=== PATIENT | male | born 1950 | race African-American/Black ===

== ENCOUNTER 2017-10-17 19:09 | Emergency (ER) | payer MEDICARE ==
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
== END 2017-10-17 23:50 | disposition home or self-care (01) ==
LOC: ERS 19:09
DX: S16.1XXA Strain of muscle, fascia and tendon at neck level, initial encounter (principal); E11.9 Type 2 diabetes mellitus without complications; E78.5 Hyperlipidemia, unspecified; I10 Essential (primary) hypertension; Z79.899 Other long term (current) drug therapy; Z79.82 Long term (current) use of aspirin; W20.8XXA Other cause of strike by thrown, projected or falling object, initial encounter
CPT/HCPCS: 70450

== ENCOUNTER 2023-01-06 16:48 | Inpatient (IN) | payer MEDICARE, OTHER ==
[2023-01-06 18:00] LABS: #Eosinphils 0.1 thou/uL (0.0-0.7); #Monocytes 0.6 thou/uL (0.11-0.59); #Neutrophils 3.2 thou/uL (1.40-6.50); %Basophils 0.4 % (0.0-1.0); %Eosinophils 2.6 % (0.0-10.0); %Lymphocytes 13.2 % (21.0-51.0); %Monocytes 12.1 % (0.0-10.0); %Neutrophils 71.5 % (42.0-75.0); Hematocrit 37.7 % (42.0-52.0); Hemoglobin 11.9 g/dL (14.0-18.0); Mean Corpuscular HGB CONC 31.6 g/dL (32.0-36.0); Mean Corpuscular Hemoglobin 29.4 pg (27.0-31.0); Mean Corpuscular Volume 93.1 fl (78.0-98.0); Mean Platelet Volume 9.8 fL (7.4-10.4); Platelet Count 166 10x3/uL (130-400); RBC Distribution Width 14.8 % (11.5-14.5); Red Blood Cell (RBC) Count 4.05 mill/uL (4.70-6.10); White Blood Cell (WBC) Count 4.5 10x3/uL (4.8-10.8)
[2023-01-06 18:27] LABS: Anion Gap 13 mmol/L (10-20); BUN (Urea Nitrogen) 19 mg/dL (8.4-25.7); Calc. Creatinine Clearance 0 mL/min (70-130); Carbon Dioxide 25 mmol/L (23-31); Chloride 106 mmol/L (98-107); Potassium 3.9 mmol/L (3.5-5.1); Sodium 140 mmol/L (136-145)
[2023-01-06 18:28] LABS: ALT (SGPT) 8 U/L (8-55); AST (SGOT) 14 U/L (5-34); Albumin 3.8 g/dL (3.4-4.8); Alkaline Phosphatase 63 U/L (40-110); Bilirubin, Total 0.5 mg/dL (0.2-1.2); Calcium 9.9 mg/dL (7.8-10.44); Estimated GFR 75; Globulin 3.3 g/dL (2.4-3.5); Glucose 134 mg/dL (80-115); Protein, Total 7.1 g/dL (5.8-8.1); Troponin I Less than 0.010 ng/mL (< 0.028)
[2023-01-06] MEDS ORDERED: Ondansetron ODT 4 MG TAB PO PRN (20:49)
[2023-01-06] MEDS ORDERED: Ondansetron PF 4 MG/2 ML Vial IVP PRN (20:49)
[2023-01-06] MEDS ORDERED: Furosemide 40 MG/4 ML VIAL ONE ×2 (21:01→22:12)
[2023-01-06 21:32] LABS: Troponin I Less than 0.010 ng/mL (< 0.028)
[2023-01-06 21:59] LABS: Iron 37 ug/dL (65-175); Iron Binding Capacity, Total 270 mcg/dL (261-462); Transferrin, Serum 216 mg/dL (163-344)
[2023-01-06] MEDS ORDERED: Furosemide 40 MG TAB ONE ×2 (22:19→22:22)
[2023-01-06 23:03] VITALS: BMI 27.3
[2023-01-06] MEDS ORDERED: Furosemide 40 MG TAB PO SCH (23:30)
[2023-01-06] MEDS ORDERED: Furosemide 20 MG TAB PO SCH (23:30)
[2023-01-07 04:06] LABS: #Eosinphils 0.1 thou/uL (0.0-0.7); #Monocytes 0.5 thou/uL (0.11-0.59); #Neutrophils 1.8 thou/uL (1.40-6.50); %Basophils 0.7 % (0.0-1.0); %Eosinophils 3.6 % (0.0-10.0); %Lymphocytes 15.7 % (21.0-51.0); Hematocrit 38.4 % (42.0-52.0); Hemoglobin 12.5 g/dL (14.0-18.0); Mean Corpuscular HGB CONC 32.6 g/dL (32.0-36.0); Mean Corpuscular Hemoglobin 29.1 pg (27.0-31.0); Mean Platelet Volume 9.3 fL (7.4-10.4); Platelet Count 166 10x3/uL (130-400); RBC Distribution Width 14.8 % (11.5-14.5); Red Blood Cell (RBC) Count 4.29 mill/uL (4.70-6.10); White Blood Cell (WBC) Count 2.8 10x3/uL (4.8-10.8)
[2023-01-07 04:29] LABS: Anion Gap 12 mmol/L (10-20); BUN (Urea Nitrogen) 16 mg/dL (8.4-25.7); Calc. Creatinine Clearance 102 mL/min (70-130); Calcium 9.2 mg/dL (7.8-10.44); Carbon Dioxide 27 mmol/L (23-31); Chloride 104 mmol/L (98-107); Estimated GFR 89; Glucose 90 mg/dL (80-115); Potassium 3.5 mmol/L (3.5-5.1); Sodium 139 mmol/L (136-145)
[2023-01-07 04:59] LABS: Mean Corpuscular Volume 89.5 fl (78.0-98.0)
[2023-01-07] MEDS: Ezetimibe 10 MG TAB PO SCH (08:55)
[2023-01-07] MEDS: Sertraline 25 MG TAB PO SCH (08:55)
[2023-01-07] MEDS: Tamsulosin HCl 0.4 MG CAP PO SCH (08:55)
[2023-01-07] MEDS: Finasteride 5 MG TAB PO SCH (08:55)
[2023-01-07] MEDS: Donepezil HCl 5 MG TAB PO SCH (08:56)
[2023-01-07] MEDS: metFORMIN 500 MG TAB PO SCH ×2 (08:56→20:10)
[2023-01-07] MEDS ORDERED: FLU VACC QS2023(65UP)/MF59C/PF 60 MCG/0.5 ML SYRINGE IM ONE (09:00)
[2023-01-07] MEDS ORDERED: Carvedilol 25 MG TAB PO SCH (09:00)
[2023-01-07] MEDS: Cholecalciferol 1,000 UNITS (25 MCG) TAB PO SCH (09:05)
[2023-01-07] MEDS ORDERED: Furosemide 40 MG/4 ML VIAL SLOW IVP SCH (11:00)
[2023-01-07] MEDS ORDERED: Potassium Chloride 20 MEQ TAB PO SCH (11:00)
[2023-01-07] MEDS: Lisinopril 2.5 MG TAB PO SCH (11:35)
[2023-01-07] MEDS: Empagliflozin 10 MG TAB PO SCH (11:36)
[2023-01-07] MEDS: Spironolactone 25 MG TAB PO SCH (11:36)
[2023-01-07] MEDS ORDERED: Haloperidol Lactate 5 MG/ML VIAL SLOW IVP SCH (13:30)
[2023-01-07] MEDS ORDERED: Iron, Sodium Ferric Gluconate 250 MG in Sodium Chloride 0.9% 250 ML 250 ML IVPB SCH (14:00)
[2023-01-07] MEDS: Carvedilol 6.25 MG TAB PO SCH (17:43)
[2023-01-07] MEDS: Rosuvastatin 20 MG TAB PO SCH (20:11)
[2023-01-08] MEDS: Spironolactone 25 MG TAB PO SCH (08:55)
[2023-01-08] MEDS: Carvedilol 6.25 MG TAB PO SCH ×2 (08:55→18:25)
[2023-01-08] MEDS: Empagliflozin 10 MG TAB PO SCH (08:56)
[2023-01-08] MEDS: Donepezil HCl 5 MG TAB PO SCH (08:56)
[2023-01-08] MEDS: Finasteride 5 MG TAB PO SCH (08:57)
[2023-01-08] MEDS: Ezetimibe 10 MG TAB PO SCH (08:57)
[2023-01-08] MEDS: Furosemide 20 MG TAB PO SCH (08:57)
[2023-01-08] MEDS: metFORMIN 500 MG TAB PO SCH ×2 (08:57→20:44)
[2023-01-08] MEDS: Sertraline 25 MG TAB PO SCH (08:57)
[2023-01-08] MEDS: Tamsulosin HCl 0.4 MG CAP PO SCH (08:57)
[2023-01-08] MEDS: Lisinopril 2.5 MG TAB PO SCH (08:57)
[2023-01-08 09:34] LABS: #Monocytes 0.3 thou/uL (0.11-0.59); #Neutrophils 2.7 thou/uL (1.40-6.50); %Basophils 0.6 % (0.0-1.0); %Eosinophils 0.6 % (0.0-10.0); %Lymphocytes 11.6 % (21.0-51.0); %Monocytes 7.7 % (0.0-10.0); %Neutrophils 79.5 % (42.0-75.0); Hematocrit 37.8 % (42.0-52.0); Hemoglobin 12.4 g/dL (14.0-18.0); Mean Corpuscular HGB CONC 32.8 g/dL (32.0-36.0); Mean Corpuscular Hemoglobin 29.7 pg (27.0-31.0); Mean Corpuscular Volume 90.6 fl (78.0-98.0); Mean Platelet Volume 9.3 fL (7.4-10.4); Platelet Count 187 10x3/uL (130-400); RBC Distribution Width 14.7 % (11.5-14.5); Red Blood Cell (RBC) Count 4.17 mill/uL (4.70-6.10); White Blood Cell (WBC) Count 3.4 10x3/uL (4.8-10.8)
[2023-01-08 09:57] LABS: ALT (SGPT) Less than 7 U/L (8-55); AST (SGOT) 12 U/L (5-34); Albumin 3.5 g/dL (3.4-4.8); Alkaline Phosphatase 64 U/L (40-110); Anion Gap 15 mmol/L (10-20); BUN (Urea Nitrogen) 17 mg/dL (8.4-25.7); Bilirubin, Total 0.9 mg/dL (0.2-1.2); Calc. Creatinine Clearance 73 mL/min (70-130); Calcium 9.6 mg/dL (7.8-10.44); Carbon Dioxide 28 mmol/L (23-31); Chloride 100 mmol/L (98-107); Estimated GFR 64; Globulin 3.3 g/dL (2.4-3.5); Glucose 188 mg/dL (80-115); Potassium 3.7 mmol/L (3.5-5.1); Protein, Total 6.8 g/dL (5.8-8.1); Sodium 139 mmol/L (136-145)
[2023-01-08] MEDS ORDERED: Aspirin 81 mg Enteric Coated Tablet PO SCH (10:45)
[2023-01-08] MEDS ORDERED: Iron, Sodium Ferric Gluconate 250 MG in Sodium Chloride 0.9% 250 ML 250 ML IVPB SCH (11:00)
[2023-01-08] MEDS: Acetaminophen 325 MG TAB PO PRN (20:44)
[2023-01-08] MEDS: Rosuvastatin 20 MG TAB PO SCH (20:44)
[2023-01-09] MEDS: Carvedilol 6.25 MG TAB PO SCH ×2 (09:53→16:29)
[2023-01-09] MEDS: Donepezil HCl 5 MG TAB PO SCH (09:54)
[2023-01-09] MEDS: Empagliflozin 10 MG TAB PO SCH (09:54)
[2023-01-09] MEDS: Aspirin 81 mg Enteric Coated Tablet PO SCH (09:54)
[2023-01-09] MEDS: Spironolactone 25 MG TAB PO SCH (09:54)
[2023-01-09] MEDS: Sertraline 25 MG TAB PO SCH (09:55)
[2023-01-09] MEDS: Ezetimibe 10 MG TAB PO SCH (09:55)
[2023-01-09] MEDS: metFORMIN 500 MG TAB PO SCH ×2 (09:55→21:01)
[2023-01-09] MEDS: Finasteride 5 MG TAB PO SCH (09:55)
[2023-01-09] MEDS: Tamsulosin HCl 0.4 MG CAP PO SCH (09:55)
[2023-01-09] MEDS: Lisinopril 5 MG TAB PO SCH (09:55)
[2023-01-09] MEDS: Furosemide 20 MG TAB PO SCH (09:55)
[2023-01-09] MEDS: Rosuvastatin 20 MG TAB PO SCH (21:01)
[2023-01-09] MEDS: Acetaminophen 325 MG TAB PO PRN (21:02)
[2023-01-10 05:50] LABS: #Eosinphils 0.1 thou/uL (0.0-0.7); #Monocytes 0.5 thou/uL (0.11-0.59); #Neutrophils 1.4 thou/uL (1.40-6.50); %Basophils 1.2 % (0.0-1.0); %Eosinophils 1.9 % (0.0-10.0); %Lymphocytes 25.5 % (21.0-51.0); %Monocytes 19.3 % (0.0-10.0); %Neutrophils 52.1 % (42.0-75.0); Hematocrit 38.2 % (42.0-52.0); Hemoglobin 12.3 g/dL (14.0-18.0); Mean Corpuscular HGB CONC 32.2 g/dL (32.0-36.0); Mean Corpuscular Hemoglobin 29.1 pg (27.0-31.0); Mean Corpuscular Volume 90.5 fl (78.0-98.0); Mean Platelet Volume 9.7 fL (7.4-10.4); Platelet Count 174 10x3/uL (130-400); RBC Distribution Width 14.6 % (11.5-14.5); Red Blood Cell (RBC) Count 4.22 mill/uL (4.70-6.10); White Blood Cell (WBC) Count 2.6 10x3/uL (4.8-10.8)
[2023-01-10 06:20] LABS: Anion Gap 12 mmol/L (10-20); BUN (Urea Nitrogen) 20 mg/dL (8.4-25.7); Calc. Creatinine Clearance 68 mL/min (70-130); Calcium 9.4 mg/dL (7.8-10.44); Carbon Dioxide 31 mmol/L (23-31); Chloride 101 mmol/L (98-107); Estimated GFR 60; Glucose 86 mg/dL (80-115); Potassium 3.7 mmol/L (3.5-5.1); Sodium 140 mmol/L (136-145)
[2023-01-10] MEDS: Spironolactone 25 MG TAB PO SCH (09:35)
[2023-01-10] MEDS: Donepezil HCl 5 MG TAB PO SCH (09:35)
[2023-01-10] MEDS: Carvedilol 6.25 MG TAB PO SCH ×2 (09:35→16:56)
[2023-01-10] MEDS: Empagliflozin 10 MG TAB PO SCH (09:35)
[2023-01-10] MEDS: Aspirin 81 mg Enteric Coated Tablet PO SCH (09:35)
[2023-01-10] MEDS: Cholecalciferol 1,000 UNITS (25 MCG) TAB PO SCH (09:36)
[2023-01-10] MEDS: Ezetimibe 10 MG TAB PO SCH (09:36)
[2023-01-10] MEDS: Lisinopril 5 MG TAB PO SCH (09:36)
[2023-01-10] MEDS: Tamsulosin HCl 0.4 MG CAP PO SCH (09:36)
[2023-01-10] MEDS: Finasteride 5 MG TAB PO SCH (09:36)
[2023-01-10] MEDS: metFORMIN 500 MG TAB PO SCH ×2 (09:36→20:21)
[2023-01-10] MEDS: Furosemide 20 MG TAB PO SCH (09:36)
[2023-01-10] MEDS: Sertraline 25 MG TAB PO SCH (09:36)
[2023-01-10] MEDS: Rosuvastatin 20 MG TAB PO SCH (20:21)
[2023-01-11] MEDS: Furosemide 20 MG TAB PO SCH (08:40)
[2023-01-11] MEDS: Empagliflozin 10 MG TAB PO SCH (08:40)
[2023-01-11] MEDS: Finasteride 5 MG TAB PO SCH (08:40)
[2023-01-11] MEDS: Sertraline 25 MG TAB PO SCH (08:40)
[2023-01-11] MEDS: Spironolactone 25 MG TAB PO SCH (08:40)
[2023-01-11] MEDS: Ezetimibe 10 MG TAB PO SCH (08:40)
[2023-01-11] MEDS: Tamsulosin HCl 0.4 MG CAP PO SCH (08:40)
[2023-01-11] MEDS: metFORMIN 500 MG TAB PO SCH ×2 (08:41→20:14)
[2023-01-11] MEDS: Lisinopril 5 MG TAB PO SCH (08:41)
[2023-01-11] MEDS: Carvedilol 6.25 MG TAB PO SCH ×2 (08:41→17:32)
[2023-01-11] MEDS: Aspirin 81 mg Enteric Coated Tablet PO SCH (08:41)
[2023-01-11] MEDS: Donepezil HCl 5 MG TAB PO SCH (08:41)
[2023-01-11] MEDS: Rosuvastatin 20 MG TAB PO SCH (20:14)
[2023-01-12 06:31] LABS: #Eosinphils 0.1 thou/uL (0.0-0.7); #Monocytes 0.4 thou/uL (0.11-0.59); #Neutrophils 1.6 thou/uL (1.40-6.50); %Basophils 1.1 % (0.0-1.0); %Eosinophils 3.7 % (0.0-10.0); %Lymphocytes 20.4 % (21.0-51.0); %Monocytes 14.1 % (0.0-10.0); %Neutrophils 60.7 % (42.0-75.0); Hematocrit 41.6 % (42.0-52.0); Hemoglobin 13.5 g/dL (14.0-18.0); Mean Corpuscular HGB CONC 32.5 g/dL (32.0-36.0); Mean Corpuscular Hemoglobin 29.3 pg (27.0-31.0); Mean Corpuscular Volume 90.4 fl (78.0-98.0); Mean Platelet Volume 10.1 fL (7.4-10.4); Platelet Count 174 10x3/uL (130-400); RBC Distribution Width 14.4 % (11.5-14.5); White Blood Cell (WBC) Count 2.7 10x3/uL (4.8-10.8)
[2023-01-12 06:57] LABS: Anion Gap 14 mmol/L (10-20); BUN (Urea Nitrogen) 27 mg/dL (8.4-25.7); Calc. Creatinine Clearance 67 mL/min (70-130); Calcium 9.7 mg/dL (7.8-10.44); Carbon Dioxide 29 mmol/L (23-31); Chloride 100 mmol/L (98-107); Estimated GFR 61; Glucose 122 mg/dL (80-115); Potassium 3.7 mmol/L (3.5-5.1); Sodium 139 mmol/L (136-145)
[2023-01-12] MEDS: Tamsulosin HCl 0.4 MG CAP PO SCH (09:40)
[2023-01-12] MEDS: Finasteride 5 MG TAB PO SCH (09:41)
[2023-01-12] MEDS: Empagliflozin 10 MG TAB PO SCH (09:41)
[2023-01-12] MEDS: Ezetimibe 10 MG TAB PO SCH (09:41)
[2023-01-12] MEDS: metFORMIN 500 MG TAB PO SCH ×2 (09:41→20:12)
[2023-01-12] MEDS: Spironolactone 25 MG TAB PO SCH (09:41)
[2023-01-12] MEDS: Furosemide 20 MG TAB PO SCH (09:41)
[2023-01-12] MEDS: Sertraline 25 MG TAB PO SCH (09:41)
[2023-01-12] MEDS: Aspirin 81 mg Enteric Coated Tablet PO SCH (09:41)
[2023-01-12] MEDS: Lisinopril 5 MG TAB PO SCH (09:42)
[2023-01-12] MEDS: Carvedilol 6.25 MG TAB PO SCH ×2 (09:43→18:15)
[2023-01-12] MEDS: Donepezil HCl 5 MG TAB PO SCH (09:48)
[2023-01-12] MEDS: Rosuvastatin 20 MG TAB PO SCH (20:12)
[2023-01-13] MEDS: Carvedilol 6.25 MG TAB PO SCH ×2 (08:27→17:04)
[2023-01-13] MEDS: Lisinopril 5 MG TAB PO SCH (08:27)
[2023-01-13] MEDS: Sertraline 25 MG TAB PO SCH (08:28)
[2023-01-13] MEDS: Finasteride 5 MG TAB PO SCH (08:28)
[2023-01-13] MEDS: Furosemide 20 MG TAB PO SCH (08:28)
[2023-01-13] MEDS: Spironolactone 25 MG TAB PO SCH (08:28)
[2023-01-13] MEDS: Donepezil HCl 5 MG TAB PO SCH (08:28)
[2023-01-13] MEDS: Ezetimibe 10 MG TAB PO SCH (08:28)
[2023-01-13] MEDS: metFORMIN 500 MG TAB PO SCH ×2 (08:28→20:35)
[2023-01-13] MEDS: Tamsulosin HCl 0.4 MG CAP PO SCH (08:28)
[2023-01-13] MEDS: Aspirin 81 mg Enteric Coated Tablet PO SCH (08:29)
[2023-01-13] MEDS: Empagliflozin 10 MG TAB PO SCH (08:29)
[2023-01-13] MEDS: Rosuvastatin 20 MG TAB PO SCH (20:35)
[2023-01-14] MEDS: metFORMIN 500 MG TAB PO SCH ×2 (09:16→20:53)
[2023-01-14] MEDS: Tamsulosin HCl 0.4 MG CAP PO SCH (09:16)
[2023-01-14] MEDS: Sertraline 25 MG TAB PO SCH (09:16)
[2023-01-14] MEDS: Aspirin 81 mg Enteric Coated Tablet PO SCH (09:17)
[2023-01-14] MEDS: Spironolactone 25 MG TAB PO SCH (09:17)
[2023-01-14] MEDS: Ezetimibe 10 MG TAB PO SCH (09:17)
[2023-01-14] MEDS: Furosemide 20 MG TAB PO SCH (09:17)
[2023-01-14] MEDS: Empagliflozin 10 MG TAB PO SCH (09:17)
[2023-01-14] MEDS: Carvedilol 6.25 MG TAB PO SCH ×2 (09:17→16:14)
[2023-01-14] MEDS: Donepezil HCl 5 MG TAB PO SCH (09:17)
[2023-01-14] MEDS: Lisinopril 5 MG TAB PO SCH (09:17)
[2023-01-14] MEDS: Finasteride 5 MG TAB PO SCH (09:17)
[2023-01-14] MEDS: Cholecalciferol 1,000 UNITS (25 MCG) TAB PO SCH (09:20)
[2023-01-14 11:47] LABS: #Monocytes 0.4 thou/uL (0.11-0.59); #Neutrophils 2.2 thou/uL (1.40-6.50); %Basophils 1.2 % (0.0-1.0); %Eosinophils 0.9 % (0.0-10.0); %Lymphocytes 20.3 % (21.0-51.0); %Monocytes 12.1 % (0.0-10.0); %Neutrophils 65.5 % (42.0-75.0); Hematocrit 38.5 % (42.0-52.0); Hemoglobin 12.5 g/dL (14.0-18.0); Mean Corpuscular HGB CONC 32.5 g/dL (32.0-36.0); Mean Corpuscular Hemoglobin 29.2 pg (27.0-31.0); Mean Platelet Volume 9.8 fL (7.4-10.4); Platelet Count 211 10x3/uL (130-400); RBC Distribution Width 14.3 % (11.5-14.5); Red Blood Cell (RBC) Count 4.28 mill/uL (4.70-6.10); White Blood Cell (WBC) Count 3.4 10x3/uL (4.8-10.8)
[2023-01-14 12:08] LABS: Anion Gap 14 mmol/L (10-20); BUN (Urea Nitrogen) 30 mg/dL (8.4-25.7); Calc. Creatinine Clearance 63 mL/min (70-130); Carbon Dioxide 28 mmol/L (23-31); Chloride 100 mmol/L (98-107); Estimated GFR 57; Glucose 100 mg/dL (80-115); Potassium 4.1 mmol/L (3.5-5.1); Sodium 138 mmol/L (136-145)
[2023-01-14] MEDS: Rosuvastatin 20 MG TAB PO SCH (20:53)
[2023-01-15] MEDS: Sertraline 25 MG TAB PO SCH (08:51)
[2023-01-15] MEDS: Ezetimibe 10 MG TAB PO SCH (08:51)
[2023-01-15] MEDS: Furosemide 20 MG TAB PO SCH (08:51)
[2023-01-15] MEDS: Spironolactone 25 MG TAB PO SCH (08:51)
[2023-01-15] MEDS: Donepezil HCl 5 MG TAB PO SCH (08:51)
[2023-01-15] MEDS: Finasteride 5 MG TAB PO SCH (08:52)
[2023-01-15] MEDS: Carvedilol 6.25 MG TAB PO SCH ×2 (08:52→16:37)
[2023-01-15] MEDS: Empagliflozin 10 MG TAB PO SCH (08:52)
[2023-01-15] MEDS: Tamsulosin HCl 0.4 MG CAP PO SCH (08:52)
[2023-01-15] MEDS: metFORMIN 500 MG TAB PO SCH ×2 (08:52→20:29)
[2023-01-15] MEDS: Aspirin 81 mg Enteric Coated Tablet PO SCH (08:52)
[2023-01-15] MEDS: Lisinopril 5 MG TAB PO SCH (09:23)
[2023-01-15] MEDS: Rosuvastatin 20 MG TAB PO SCH (20:29)
[2023-01-16] MEDS: Aspirin 81 mg Enteric Coated Tablet PO SCH (08:31)
[2023-01-16] MEDS: Tamsulosin HCl 0.4 MG CAP PO SCH (08:31)
[2023-01-16] MEDS: Lisinopril 5 MG TAB PO SCH (08:31)
[2023-01-16] MEDS: Ezetimibe 10 MG TAB PO SCH (08:31)
[2023-01-16] MEDS: Donepezil HCl 5 MG TAB PO SCH (08:31)
[2023-01-16] MEDS: Spironolactone 25 MG TAB PO SCH (08:31)
[2023-01-16] MEDS: Carvedilol 6.25 MG TAB PO SCH ×2 (08:31→16:23)
[2023-01-16] MEDS: Furosemide 20 MG TAB PO SCH (08:31)
[2023-01-16] MEDS: Empagliflozin 10 MG TAB PO SCH (08:32)
[2023-01-16] MEDS: Finasteride 5 MG TAB PO SCH (08:32)
[2023-01-16] MEDS: Sertraline 25 MG TAB PO SCH (08:32)
[2023-01-16] MEDS: metFORMIN 500 MG TAB PO SCH ×2 (08:32→20:02)
[2023-01-16] MEDS: Rosuvastatin 20 MG TAB PO SCH (20:02)
[2023-01-17 06:36] LABS: ALT (SGPT) 8 U/L (8-55); AST (SGOT) 17 U/L (5-34); Albumin 4.2 g/dL (3.4-4.8); Alkaline Phosphatase 69 U/L (40-110); Anion Gap 14 mmol/L (10-20); BUN (Urea Nitrogen) 44 mg/dL (8.4-25.7); Bilirubin, Total 0.5 mg/dL (0.2-1.2); Calc. Creatinine Clearance 43 mL/min (70-130); Carbon Dioxide 24 mmol/L (23-31); Chloride 103 mmol/L (98-107); Estimated GFR 37; Globulin 3.3 g/dL (2.4-3.5); Glucose 91 mg/dL (80-115); Potassium 4.1 mmol/L (3.5-5.1); Protein, Total 7.5 g/dL (5.8-8.1); Sodium 137 mmol/L (136-145)
[2023-01-17] MEDS: Carvedilol 6.25 MG TAB PO SCH ×2 (09:05→17:39)
[2023-01-17] MEDS: Finasteride 5 MG TAB PO SCH (09:06)
[2023-01-17] MEDS: Ezetimibe 10 MG TAB PO SCH (09:06)
[2023-01-17] MEDS: Tamsulosin HCl 0.4 MG CAP PO SCH (09:06)
[2023-01-17] MEDS: Lisinopril 5 MG TAB PO SCH (09:07)
[2023-01-17] MEDS: Donepezil HCl 5 MG TAB PO SCH (09:07)
[2023-01-17] MEDS: Empagliflozin 10 MG TAB PO SCH (09:07)
[2023-01-17] MEDS: Sertraline 25 MG TAB PO SCH (09:07)
[2023-01-17] MEDS: Aspirin 81 mg Enteric Coated Tablet PO SCH (09:07)
[2023-01-17] MEDS: metFORMIN 500 MG TAB PO SCH ×2 (09:07→20:36)
[2023-01-17] MEDS: Cholecalciferol 1,000 UNITS (25 MCG) TAB PO SCH (09:10)
[2023-01-17] MEDS: Spironolactone 25 MG TAB PO SCH (09:48)
[2023-01-17 19:18] LABS: Creatinine, Urine 122.26 mg/dL (63-166)
[2023-01-17] MEDS: Rosuvastatin 20 MG TAB PO SCH (20:36)
[2023-01-18 00:56] VITALS: TEMP 97.9
[2023-01-18 05:30] LABS: Anion Gap 13 mmol/L (10-20); BUN (Urea Nitrogen) 40 mg/dL (8.4-25.7); Calc. Creatinine Clearance 49 mL/min (70-130); Calcium 10.2 mg/dL (7.8-10.44); Carbon Dioxide 25 mmol/L (23-31); Chloride 105 mmol/L (98-107); Estimated GFR 43; Glucose 98 mg/dL (80-115); Potassium 4.3 mmol/L (3.5-5.1); Sodium 139 mmol/L (136-145)
[2023-01-18 10:07] VITALS: BP 133/69
[2023-01-18] MEDS: Carvedilol 6.25 MG TAB PO SCH (10:07)
[2023-01-18] MEDS: Lisinopril 5 MG TAB PO SCH (10:08)
[2023-01-18] MEDS: Donepezil HCl 5 MG TAB PO SCH (10:08)
[2023-01-18] MEDS: Ezetimibe 10 MG TAB PO SCH (10:08)
[2023-01-18] MEDS: Aspirin 81 mg Enteric Coated Tablet PO SCH (10:08)
[2023-01-18] MEDS: Sertraline 25 MG TAB PO SCH (10:08)
[2023-01-18] MEDS: Finasteride 5 MG TAB PO SCH (10:08)
[2023-01-18] MEDS: Empagliflozin 10 MG TAB PO SCH (10:08)
[2023-01-18] MEDS: metFORMIN 500 MG TAB PO SCH (10:09)
[2023-01-18] MEDS: Tamsulosin HCl 0.4 MG CAP PO SCH (10:09)
== END 2023-01-18 14:39 | DRG 291 ==
LOC: ERS 16:48 → INTOOBSV 19:45 → 2NO 19:45 → T4-B 01-08 16:23 → OBSVTOIN 01-08 17:18 → T4-B 01-11 13:15
PROVIDERS: ADMIT Family Medicine; ATTEND Family Medicine
DX: I11.0 Hypertensive heart disease with heart failure (principal); I50.33 Acute on chronic diastolic (congestive) heart failure; I47.20 Ventricular tachycardia, unspecified; N17.9 Acute kidney failure, unspecified; F03.90 Unspecified dementia, unspecified severity, without behavioral disturbance, psychotic disturbance, mood disturbance, and anxiety; E11.9 Type 2 diabetes mellitus without complications; D64.9 Anemia, unspecified; E78.00 Pure hypercholesterolemia, unspecified; T50.2X5A Adverse effect of carbonic-anhydrase inhibitors, benzothiadiazides and other diuretics, initial encounter; Z79.899 Other long term (current) drug therapy; Z79.84 Long term (current) use of oral hypoglycemic drugs; Z85.46 Personal history of malignant neoplasm of prostate; Z95.1 Presence of aortocoronary bypass graft; Z95.5 Presence of coronary angioplasty implant and graft; Z95.810 Presence of automatic (implantable) cardiac defibrillator; Z87.891 Personal history of nicotine dependence
CPT/HCPCS: 36415; 36416; 71045; 80048; 80053; 82570; 82728; 83540; 83550; 83880; 84466; 84484; 84540; 85025; 93005; 93306; 96365; 96366; 96372; 96375; 96376; G0378; J1630; J1650; J1940; J2916; J7050